=== PATIENT | female | born 1960 | race Caucasian/White ===

== ENCOUNTER → 2017-12-27 | Outpatient (CLI) | payer OTHER ==
[~2017-12-27] MED LIST: ASPI-515 PO; BISO5TAB11 PO; CHOL200024 PO; DULERA NAS; GABA300C10 PO; HYDR-3245 PO; MAGNESIUM OX PO; MELA5TAB19 PO; MULT-516 PO; ONDA4TAB13 SL; TRAM50TA2 PO
== END | disposition home or self-care (01) ==
LOC: CVU 15:02 → EDSTATUS 16:00
PROVIDERS: ATTEND Internal Medicine Cardiovascular Disease
DX: I48.0 Paroxysmal atrial fibrillation (principal); F41.9 Anxiety disorder, unspecified
CPT/HCPCS: 93306